=== PATIENT | female | born 1980 | race Native Hawaiian/Other Pacific Islander ===

== ENCOUNTER 2017-10-07 10:29 | Emergency (ER) | payer OTHER ==
[~2017-10-07] VITALS: Ht 177.8 cm; Wt 95.3 kg
[2017-10-07 10:35] VITALS: TEMP 97.7
[2017-10-07 11:13] LABS: PLATELET COUNT 226 K/uL (152-353)
[2017-10-07 11:25] LABS: POTASSIUM 3.9 mmol/L (3.6-5.2); SODIUM 136 mmol/L (136-145)
[2017-10-07 15:02] VITALS: BP 148/78
== END 2017-10-07 15:02 | disposition home or self-care (01) ==
LOC: ED 10:29
PROVIDERS: Internal Medicine
DX: A69.20 Lyme disease, unspecified (principal); L03.115 Cellulitis of right lower limb; I10 Essential (primary) hypertension
CPT/HCPCS: 36415; 80053; 85027; 96365; 96368; 99284

== ENCOUNTER 2018-11-03 07:48 | Emergency (ER) | payer OTHER ==
[~2018-11-03] VITALS: Ht 154.9 cm; Wt 95.7 kg
[2018-11-03 09:05] VITALS: BP 135/75; TEMP 98.1
== END 2018-11-03 09:05 | disposition home or self-care (01) ==
LOC: ED 07:48
DX: S93.601A Unspecified sprain of right foot, initial encounter (principal)
CPT/HCPCS: 99282

== ENCOUNTER 2019-12-28 14:14 | Emergency (ER) | payer OTHER ==
[~2019-12-28] VITALS: Ht 154.9 cm; Wt 108.9 kg
[2019-12-28 14:19] VITALS: TEMP 97.9
[2019-12-28 15:30] VITALS: BP 158/77
== END 2019-12-28 15:30 | disposition home or self-care (01) ==
LOC: ED 14:14
DX: M70.32 Other bursitis of elbow, left elbow (principal); J06.9 Acute upper respiratory infection, unspecified
CPT/HCPCS: 87502; 87651; 96372; 99283; J0696; J1885; J2060